=== PATIENT | female | born 1975 | race Caucasian/White ===

== ENCOUNTER 2017-04-06 16:44 | Inpatient (IN) | payer MEDICARE, MEDICAID ==
[~2017-04-06] VITALS: Ht 170.2 cm; Wt 88.8 kg
[~2017-04-06 16:44] MED LIST: DIPHENHYDRAMINE 25 MG CAPSULE PO PRN; HYDROmorphone 1 MG/ML, 1ML ONE; KETOROLAC 30 MG/1 ML ONE
[2017-04-06] MEDS ORDERED: DIAZEPAM 5 MG TABLET ONE (18:34)
[2017-04-06] MEDS ORDERED: OXYcodone/APAP 10/325MG TABLET ONE (18:35)
[2017-04-06] MEDS ORDERED: DIPHENHYDRAMINE 25 MG CAPSULE ONE (19:19)
[2017-04-06] MEDS ORDERED: HYDROmorphone 1 MG/ML, 1ML ONE (21:13)
[2017-04-07] MEDS ORDERED: HYDROmorphone 1 MG/ML, 1ML ONE ×5 (01:22→17:27)
[2017-04-07] MEDS ORDERED: DIPHENHYDRAMINE 25 MG CAPSULE ONE ×2 (01:48→11:03)
[2017-04-07] MEDS ORDERED: ENOXAPARIN 40 MG/0.4 ML SQ ONE (15:30)
[2017-04-07] MEDS ORDERED: ENOXAPARIN 40 MG/0.4 ML ONE (17:25)
[2017-04-07] MEDS ORDERED: DIPHENHYDRAMINE 50 MG/ML, 1ML ONE (17:26)
[2017-04-07] MEDS ORDERED: DIPHENHYDRAMINE 50 MG/ML, 1ML IVPush ONE (17:30)
[2017-04-07 19:00] VITALS: BP 121/79
[2017-04-07] MEDS ORDERED: DIPHENHYDRAMINE 25 MG CAPSULE PO PRN (19:30)
[2017-04-07] MEDS: TOPIRAMATE 100 MG TABLET PO SCH (21:30)
[2017-04-07] MEDS: SODIUM CHLORIDE 0.9% 1,000 ML IV SCH (21:30)
[2017-04-07] MEDS: DULOXETINE 30 MG CAPSULE.DR PO SCH (21:30)
[2017-04-07] MEDS: HYDROmorphone 1 MG/ML, 1ML IV PRN (22:10)
[2017-04-07] MEDS: TEMAZEPAM 30 MG CAPSULE PO PRN (23:16)
[2017-04-08 01:57] VITALS: BP 100/62
[2017-04-08] MEDS: HYDROmorphone 1 MG/ML, 1ML IV PRN ×5 (02:31→21:12)
[2017-04-08] MEDS: PROCHLORPERAZINE 5 MG/ML, 2ML IVPush PRN ×3 (02:42→23:10)
[2017-04-08] MEDS ORDERED: TOPI200T25 PO (03:33)
[2017-04-08] MEDS ORDERED: LACO100T PO (03:36)
[2017-04-08] MEDS ORDERED: LEVO88TA4 PO (03:36)
[2017-04-08] MEDS ORDERED: SIMV20TA3 PO (03:36)
[2017-04-08] MEDS ORDERED: DULO60CA7 PO (03:36)
[2017-04-08] MEDS ORDERED: DIAZ5TAB PO (03:37)
[2017-04-08] MEDS ORDERED: TEMA30CA6 PO (03:37)
[2017-04-08] MEDS: LEVOTHYROXINE 88 MCG TABLET PO SCH (04:56)
[2017-04-08 07:10] VITALS: BP 90/54
[2017-04-08] MEDS ORDERED: DIAZEPAM 5 MG TABLET PO PRN (08:00)
[2017-04-08] MEDS: hydrOXyzine 50MG TABLET PO PRN ×2 (10:03→18:45)
[2017-04-08] MEDS: LACOSAMIDE 50 MG TABLET PO SCH ×2 (10:03→20:50)
[2017-04-08] MEDS: TOPIRAMATE 100 MG TABLET PO SCH ×2 (10:03→20:51)
[2017-04-08] MEDS: DULOXETINE 30 MG CAPSULE.DR PO SCH ×2 (10:03→20:50)
[2017-04-08] MEDS: SODIUM CHLORIDE 0.9% 1,000 ML IV SCH (10:04)
[2017-04-08 12:35] LABS: BLOOD UREA NITROGEN 7 mg/dL (7-18)
[2017-04-08 14:42] VITALS: BP 90/55
[2017-04-08] MEDS: ENOXAPARIN 40 MG/0.4 ML SQ SCH (18:18)
[2017-04-08] MEDS: HYDROcodone/APAP 10/325 MG TABLET PO PRN ×2 (18:43→19:09)
[2017-04-08 20:11] VITALS: BP 97/64
[2017-04-08] MEDS: SIMVASTATIN 20 MG TABLET PO SCH (20:51)
[2017-04-09 02:59] VITALS: BP 93/63
[2017-04-09] MEDS: HYDROmorphone 1 MG/ML, 1ML IV PRN ×3 (03:13→15:27)
[2017-04-09] MEDS: HYDROcodone/APAP 10/325 MG TABLET PO PRN ×4 (05:20→23:51)
[2017-04-09] MEDS: LEVOTHYROXINE 88 MCG TABLET PO SCH (05:20)
[2017-04-09 08:02] VITALS: BP 95/61
[2017-04-09 09:02] LABS: BLOOD UREA NITROGEN 7 mg/dL (7-18)
[2017-04-09] MEDS: TOPIRAMATE 100 MG TABLET PO SCH ×2 (09:42→20:09)
[2017-04-09] MEDS: DULOXETINE 30 MG CAPSULE.DR PO SCH ×2 (09:42→20:10)
[2017-04-09] MEDS: LACOSAMIDE 50 MG TABLET PO SCH ×2 (09:42→20:09)
[2017-04-09 09:44] LABS: ASPARTATE AMINO TRANSFERASE 9 U/L (15-37); BLOOD UREA NITROGEN 16 mg/dL (7-18)
[2017-04-09] MEDS: PROCHLORPERAZINE 5 MG/ML, 2ML IVPush PRN (10:16)
[2017-04-09] MEDS: SODIUM CHLORIDE 0.9% 1,000 ML IV SCH (13:30)
[2017-04-09 14:47] VITALS: BP 100/63
[2017-04-09] MEDS: ENOXAPARIN 40 MG/0.4 ML SQ SCH (17:44)
[2017-04-09 20:02] VITALS: BP 114/73
[2017-04-09] MEDS: SIMVASTATIN 20 MG TABLET PO SCH (20:10)
[2017-04-09] MEDS: HYDROmorphone 2MG TABLET PO PRN (20:11)
[2017-04-09] MEDS: hydrOXyzine 50MG TABLET PO PRN (22:12)
[2017-04-09] MEDS: TEMAZEPAM 30 MG CAPSULE PO PRN (23:51)
[2017-04-10 02:35] VITALS: BP 99/66
[2017-04-10] MEDS: HYDROmorphone 2MG TABLET PO PRN ×3 (03:00→17:15)
[2017-04-10 05:42] LABS: BLOOD UREA NITROGEN 7 mg/dL (7-18)
[2017-04-10] MEDS: HYDROcodone/APAP 10/325 MG TABLET PO PRN ×2 (06:06→13:09)
[2017-04-10] MEDS: hydrOXyzine 50MG TABLET PO PRN ×2 (06:06→13:10)
[2017-04-10] MEDS: LEVOTHYROXINE 88 MCG TABLET PO SCH (06:06)
[2017-04-10 08:15] VITALS: BP 101/68
[2017-04-10] MEDS: LACOSAMIDE 50 MG TABLET PO SCH (10:08)
[2017-04-10] MEDS: TOPIRAMATE 100 MG TABLET PO SCH (10:08)
[2017-04-10] MEDS: DULOXETINE 30 MG CAPSULE.DR PO SCH (10:08)
[2017-04-10] MEDS: SODIUM CHLORIDE 0.9% 1,000 ML IV SCH (14:00)
[2017-04-10 14:19] VITALS: BP 95/64
[2017-04-10] MEDS ORDERED: HYDR-882 PO (15:58)
[2017-04-10] MEDS: ENOXAPARIN 40 MG/0.4 ML SQ SCH (17:15)
== END 2017-04-10 18:40 | disposition home or self-care (01) | DRG 559 ==
LOC: EDIP 16:44 → UNDODISIN 04-07 07:00 → 4NOR 04-07 19:40
PROVIDERS: ADMIT Neurological Surgery; ATTEND Neurological Surgery
DX: T84.84XA Pain due to internal orthopedic prosthetic devices, implants and grafts, initial encounter (principal); E43 Unspecified severe protein-calorie malnutrition; T84.52XA Infection and inflammatory reaction due to internal left hip prosthesis, initial encounter; G89.29 Other chronic pain; E03.9 Hypothyroidism, unspecified; E78.5 Hyperlipidemia, unspecified; E87.6 Hypokalemia; D64.9 Anemia, unspecified; Y83.8 Other surgical procedures as the cause of abnormal reaction of the patient, or of later complication, without mention of misadventure at the time of the procedure; G40.909 Epilepsy, unspecified, not intractable, without status epilepticus; Z96.643 Presence of artificial hip joint, bilateral; Z98.1 Arthrodesis status; Z90.49 Acquired absence of other specified parts of digestive tract; Z88.6 Allergy status to analgesic agent; Z88.1 Allergy status to other antibiotic agents; Z88.8 Allergy status to other drugs, medicaments and biological substances; Z68.30 Body mass index [BMI] 30.0-30.9, adult; Y92.89 Other specified places as the place of occurrence of the external cause; G89.28 Other chronic postprocedural pain
CPT/HCPCS: 36415; 80048; 80053; 82040; 85025; J1170; J1650; J0780; J1200; J7030; Q0163

== ENCOUNTER 2018-09-27 23:22 | Inpatient (IN) | payer MEDICARE, MEDICAID ==
[~2018-09-27] VITALS: Ht 167.6 cm; Wt 89.5 kg
[~2018-09-27 23:22] MED LIST changes: +DIAZ5TAB PO; -DIPHENHYDRAMINE 25 MG CAPSULE PO PRN; +DULO60CA7 PO; +HYDR-3653 PO; -HYDROmorphone 1 MG/ML, 1ML ONE; -KETOROLAC 30 MG/1 ML ONE; +LACO100T PO; +LEVO88TA4 PO; +SIMV20TA3 PO; +TEMA30CA6 PO; +TOPI200T25 PO
[2018-09-28] MEDS ORDERED: HYDROmorphone 1 MG/ML, 1ML IV PRN ×2 (00:30→20:00)
[2018-09-28] MEDS ORDERED: SODIUM CHLORIDE FLUSH 10ML SYR IVF ONE (00:30)
[2018-09-28] MEDS ORDERED: HYDROmorphone 2 MG/ML, 1ML ONE ×8 (00:34→17:47)
[2018-09-28 00:38] LABS: BASOPHILS # (AUTO) 0.06 x10^3/uL (0-0.1); BASOPHILS % (AUTO) 1 % (0-1); EOSINOPHILS # (AUTO) 0.11 x10^3/uL (0-0.4); EOSINOPHILS % (AUTO) 2 % (1-7); LYMPHOCYTES # (AUTO) 1.89 x10^3/uL (1-3.4); LYMPHOCYTES % (AUTO) 26 % (22-44); MD NO; MEAN CORPUSCULAR HEMOGLOBIN 33.5 pg (27.0-34.8); MEAN CORPUSCULAR HGB CONC 34.1 g/dL (32.4-35.8); MEAN PLATELET VOLUME 7.4 fL (7.4-10.4); MONOCYTES # (AUTO) 0.39 x10^3/uL (0.2-0.8); MONOCYTES % (AUTO) 5 % (2-9); NEUTROPHILS # (AUTO) 4.93 x10^3/uL (1.8-6.8); NEUTROPHILS % (AUTO) 67 % (42-75); PLATELET COUNT 370 x10^3/uL (130-400); RED BLOOD COUNT 4.55 x10^6/uL (3.82-5.3); RED CELL DISTRIBUTION WIDTH 14.4 % (9.6-15.2)
[2018-09-28 00:41] LABS: ANION GAP 13 mmol/L (5-15); CALCIUM 9.2 mg/dL (8.5-10.1); CHLORIDE 116 mmol/L (98-107); CREATININE 0.63 mg/dL (0.55-1.02)
[2018-09-28] MEDS ORDERED: hydrALAzine 20 MG/ML, 1ML IVPush PRN (01:00)
[2018-09-28] MEDS ORDERED: ONDANSETRON 2MG/ML, 2ML IVPush PRN (01:00)
[2018-09-28 02:00] VITALS: BP 136/87
[2018-09-28] MEDS ORDERED: HYDROmorphone 1 MG/ML, 1ML IV ONE (02:30)
[2018-09-28] MEDS ORDERED: HYDR1LIQ6 SQ (02:55)
[2018-09-28] MEDS ORDERED: TOPI100T39 PO (02:55)
[2018-09-28] MEDS ORDERED: LACO100T PO (02:55)
[2018-09-28] MEDS ORDERED: SIMV5TAB5 PO (02:55)
[2018-09-28] MEDS ORDERED: TEMA30CA PO (02:55)
[2018-09-28] MEDS: HYDROmorphone 1 MG/ML, 1ML IV PRN ×5 (04:51→14:20)
[2018-09-28] MEDS: MORPHINE SULFATE 4 MG/ML, 1ML IVPush PRN ×4 (07:40→23:06)
[2018-09-28 07:46] VITALS: BP 138/76
[2018-09-28] MEDS: D5%-0.45% NACL 1,000 ML IV SCH ×2 (10:51→20:50)
[2018-09-28 11:59] VITALS: BP 153/88
[2018-09-28] MEDS: LACOSAMIDE 100 MG PO SCH ×2 (14:07→21:00)
[2018-09-28] MEDS: TOPIRAMATE 100 MG TABLET PO SCH ×2 (14:07→21:05)
[2018-09-28 14:24] LABS: HCG UR SG 1.025 (1.003-1.030)
[2018-09-28] MEDS ORDERED: FENTANYL PF 100 MCG/2ML ONE (15:44)
[2018-09-28] MEDS ORDERED: DIPHENHYDRAMINE 50 MG/ML, 1ML IVPush PRN (16:00)
[2018-09-28] MEDS ORDERED: FENTANYL PF 100 MCG/2ML IV PRN (16:00)
[2018-09-28] MEDS ORDERED: LORazepam 2 MG/ML, 1ML IVPush PRN (16:00)
[2018-09-28] MEDS ORDERED: LABETALOL 5MG/ML, 20ML IV PRN (16:00)
[2018-09-28] MEDS ORDERED: OXYcodone 5 MG/5 ML ORAL.SOL UDC PO PRN (16:00)
[2018-09-28] MEDS ORDERED: MEPERIDINE/PF 25MG/0.5ML IVPush PRN (16:00)
[2018-09-28] MEDS ORDERED: hydrALAzine 20 MG/ML, 1ML IV PRN (16:00)
[2018-09-28] MEDS ORDERED: ONDANSETRON 2MG/ML, 2ML ONE (16:17)
[2018-09-28] MEDS ORDERED: DEXAMETHASONE 4 MG/ML, 1ML ONE (16:17)
[2018-09-28] MEDS ORDERED: KETOROLAC 30 MG/1 ML ONE (16:17)
[2018-09-28] MEDS ORDERED: NEOSTIGMINE 1 MG/ML, 10ML ONE (16:17)
[2018-09-28] MEDS ORDERED: SUCCINYLCHOLINE 20 MG/ML, 10ML ONE (16:17)
[2018-09-28] MEDS ORDERED: ROCURONIUM 10 MG/ML,10ML ONE (16:17)
[2018-09-28] MEDS ORDERED: PROPOFOL 10 MG/ML, 20ML ONE (16:17)
[2018-09-28] MEDS ORDERED: GLYCOPYRROLATE 0.2MG/1ML, 5ML ONE (16:17)
[2018-09-28] MEDS ORDERED: PROMETHAZINE 25 MG/ML, 1ML ONE (17:28)
[2018-09-28] MEDS ORDERED: METHADONE 5 MG TABLET PO ONE (17:30)
[2018-09-28] MEDS: HYDROMORPHONE 2 MG/ML IV PRN ×3 (17:53→18:55)
[2018-09-28] MEDS ORDERED: GLYCOPYRROLATE 0.4 MG/2 ML, 2ML ONE (18:16)
[2018-09-28] MEDS ORDERED: GLYCOPYRROLATE 0.2MG/1ML, 5ML IVPush ONE (18:30)
[2018-09-28 18:44] LABS: CALCIUM 8.7 mg/dL (8.5-10.1)
[2018-09-28 19:36] VITALS: BP 143/92
[2018-09-28] MEDS ORDERED: HYDROcodone/APAP 7.5-325MG/15ML UDC ONE (19:45)
[2018-09-28] MEDS ORDERED: ONDANSETRON 2MG/ML, 2ML IV PRN (20:00)
[2018-09-28] MEDS ORDERED: HYDROcodone/APAP 7.5-325MG/15ML UDC PO PRN (20:00)
[2018-09-28] MEDS ORDERED: DIPHENHYDRAMINE 25 MG CAPSULE PO PRN (20:00)
[2018-09-28] MEDS ORDERED: CEFAZOLIN PMX 1GM/50ML 50 ML IVPB SCH (20:00)
[2018-09-28] MEDS: SODIUM CHLORIDE FLUSH 10ML SYR IVF SCH (21:00)
[2018-09-28] MEDS ORDERED: LACOSAMIDE 100 MG HOMEMEDPO SCH (21:00)
[2018-09-28] MEDS ORDERED: TOPIRAMATE 100 MG TABLET PO SCH (21:00)
[2018-09-28] MEDS: KETOROLAC 30 MG/1 ML IM SCH (21:05)
[2018-09-28] MEDS: SIMVASTATIN 5 MG TABLET PO SCH (21:05)
[2018-09-28] MEDS: DOCUSATE 100 MG CAPSULE PO SCH (21:06)
[2018-09-28] MEDS: DIAZEPAM 5 MG TABLET PO PRN (21:06)
[2018-09-28] MEDS ORDERED: TEMAZEPAM 15 MG CAPSULE ONE (23:00)
[2018-09-28] MEDS: TEMAZEPAM 30 MG CAPSULE PO SCH (23:05)
[2018-09-28] MEDS: VANCOMYCIN 1,000 MG in SODIUM CHLORIDE 0.9% 100 ML IV SCH (23:06)
[2018-09-29] MEDS: OXYcodone/APAP 5/325MG TABLET PO PRN ×6 (00:08→21:33)
[2018-09-29 00:21] VITALS: BP 112/74
[2018-09-29] MEDS: MORPHINE SULFATE 4 MG/ML, 1ML IVPush PRN ×5 (03:14→20:27)
[2018-09-29] MEDS: KETOROLAC 30 MG/1 ML IM SCH ×2 (04:16→11:08)
[2018-09-29] MEDS: LEVOTHYROXINE 88 MCG TABLET PO SCH (04:16)
[2018-09-29 04:40] VITALS: BP 106/69
[2018-09-29] MEDS: DIAZEPAM 5 MG TABLET PO PRN ×2 (05:06→21:35)
[2018-09-29] MEDS: ENOXAPARIN 40 MG/0.4 ML SQ SCH (05:06)
[2018-09-29 06:30] LABS: BASOPHILS # (AUTO) 0.03 x10^3/uL (0-0.1); BASOPHILS % (AUTO) 0 % (0-1); EOSINOPHILS # (AUTO) 0.07 x10^3/uL (0-0.4); EOSINOPHILS % (AUTO) 1 % (1-7); LYMPHOCYTES # (AUTO) 1.82 x10^3/uL (1-3.4); LYMPHOCYTES % (AUTO) 23 % (22-44); MD NO; MEAN CORPUSCULAR HGB CONC 33.9 g/dL (32.4-35.8); MEAN CORPUSCULAR VOLUME 100.2 fL (80-100); MEAN PLATELET VOLUME 7.8 fL (7.4-10.4); MONOCYTES # (AUTO) 0.68 x10^3/uL (0.2-0.8); MONOCYTES % (AUTO) 9 % (2-9); NEUTROPHILS # (AUTO) 5.19 x10^3/uL (1.8-6.8); NEUTROPHILS % (AUTO) 67 % (42-75); PLATELET COUNT 238 x10^3/uL (130-400); RED BLOOD COUNT 3.48 x10^6/uL (3.82-5.3); RED CELL DISTRIBUTION WIDTH 14.7 % (9.6-15.2)
[2018-09-29 06:37] LABS: ANION GAP 6 mmol/L (5-15); CHLORIDE 111 mmol/L (98-107)
[2018-09-29 06:38] LABS: CALCIUM 8.6 mg/dL (8.5-10.1); CREATININE 0.69 mg/dL (0.55-1.02)
[2018-09-29] MEDS: D5%-0.45% NACL 1,000 ML IV SCH (06:48)
[2018-09-29 07:14] VITALS: BP 117/76
[2018-09-29 07:15] VITALS: BP 105/66
[2018-09-29] MEDS: SODIUM CHLORIDE FLUSH 10ML SYR IVF SCH ×2 (09:00→20:34)
[2018-09-29] MEDS: LACOSAMIDE 100 MG PO SCH ×2 (09:00→20:34)
[2018-09-29] MEDS: TOPIRAMATE 100 MG TABLET PO SCH ×2 (09:13→20:33)
[2018-09-29] MEDS: DOCUSATE 100 MG CAPSULE PO SCH ×2 (09:13→20:33)
[2018-09-29] MEDS: VANCOMYCIN 1,000 MG in SODIUM CHLORIDE 0.9% 100 ML IV SCH (09:15)
[2018-09-29 09:46] LABS: THYROID STIMULATING HORMONE 1.57 mIU/L (0.358-3.740)
[2018-09-29] MEDS ORDERED: LACOSAMIDE 50 MG TABLET PO ONE (10:30)
[2018-09-29 15:09] VITALS: BP 96/60
[2018-09-29 20:07] VITALS: BP 125/77
[2018-09-29] MEDS: SIMVASTATIN 5 MG TABLET PO SCH (20:33)
[2018-09-29] MEDS: TEMAZEPAM 30 MG CAPSULE PO SCH (21:33)
[2018-09-30] MEDS: MORPHINE SULFATE 4 MG/ML, 1ML IVPush PRN ×7 (00:30→23:10)
[2018-09-30] MEDS: OXYcodone/APAP 5/325MG TABLET PO PRN ×5 (01:34→20:37)
[2018-09-30 02:35] VITALS: BP 111/74
[2018-09-30] MEDS: LEVOTHYROXINE 88 MCG TABLET PO SCH (06:11)
[2018-09-30] MEDS: ENOXAPARIN 40 MG/0.4 ML SQ SCH (06:13)
[2018-09-30] MEDS: FOLIC ACID 1 MG TABLET PO SCH (08:55)
[2018-09-30] MEDS: LACOSAMIDE 100 MG PO SCH ×2 (08:56→20:39)
[2018-09-30] MEDS: THIAMINE 100MG TABLET PO SCH (08:56)
[2018-09-30] MEDS: TOPIRAMATE 100 MG TABLET PO SCH ×2 (08:56→20:37)
[2018-09-30] MEDS: DOCUSATE 100 MG CAPSULE PO SCH ×2 (08:56→20:36)
[2018-09-30] MEDS: CYANOCOBALAMIN 1,000 MCG TABLET PO SCH (08:56)
[2018-09-30] MEDS: DIAZEPAM 5 MG TABLET PO PRN ×2 (08:56→16:00)
[2018-09-30] MEDS: SODIUM CHLORIDE FLUSH 10ML SYR IVF SCH ×2 (08:56→20:38)
[2018-09-30 10:02] VITALS: BP 107/69
[2018-09-30 13:32] VITALS: BP 118/81
[2018-09-30 18:54] VITALS: BP 118/78
[2018-09-30] MEDS ORDERED: HYDROmorphone 2 MG/ML, 1ML ONE (20:31)
[2018-09-30] MEDS: SIMVASTATIN 5 MG TABLET PO SCH (20:37)
[2018-09-30] MEDS: TEMAZEPAM 30 MG CAPSULE PO SCH (22:34)
[2018-10-01] MEDS: OXYcodone/APAP 5/325MG TABLET PO PRN ×5 (00:49→17:11)
[2018-10-01 03:09] VITALS: BP 108/67
[2018-10-01] MEDS: MORPHINE SULFATE 4 MG/ML, 1ML IVPush PRN ×2 (04:20→08:42)
[2018-10-01] MEDS: ENOXAPARIN 40 MG/0.4 ML SQ SCH (06:05)
[2018-10-01] MEDS: LEVOTHYROXINE 88 MCG TABLET PO SCH (06:06)
[2018-10-01] MEDS: TOPIRAMATE 100 MG TABLET PO SCH (08:43)
[2018-10-01] MEDS: DOCUSATE 100 MG CAPSULE PO SCH (08:43)
[2018-10-01] MEDS: FOLIC ACID 1 MG TABLET PO SCH (08:43)
[2018-10-01] MEDS: CYANOCOBALAMIN 1,000 MCG TABLET PO SCH (08:43)
[2018-10-01] MEDS: SODIUM CHLORIDE FLUSH 10ML SYR IVF SCH (08:43)
[2018-10-01] MEDS: THIAMINE 100MG TABLET PO SCH (08:43)
[2018-10-01] MEDS ORDERED: LACOSAMIDE 100 MG PO SCH (09:00)
[2018-10-01 13:15] VITALS: BP 118/78
[2018-10-01] MEDS ORDERED: FOLI-17 PO (14:21)
[2018-10-01] MEDS ORDERED: THIA100T67 PO (14:21)
[2018-10-01] MEDS ORDERED: CYAN10005 PO (14:21)
[2018-10-01] MEDS ORDERED: ASPI81TA45 PO (14:22)
[2018-10-01 17:26] VITALS: BP 121/79
== END 2018-10-01 19:10 | disposition home or self-care (01) | DRG 493 ==
LOC: ED 09-28 00:52 → EDIP 09-28 00:57 → ED 09-28 01:16 → 4NOR 09-28 02:08
PROVIDERS: ADMIT Internal Medicine; ATTEND Internal Medicine
PROC: 0QSG34Z Reposition Right Tibia with Internal Fixation Device, Percutaneous Approach (ICD-10-PCS; 2018-09-28)
PROC: 0QSJXZZ Reposition Right Fibula, External Approach (ICD-10-PCS; 2018-09-28)
PROC: 0QSG36Z Reposition Right Tibia with Intramedullary Internal Fixation Device, Percutaneous Approach (ICD-10-PCS; principal; 2018-09-28 16:00)
DX: S82.251A Displaced comminuted fracture of shaft of right tibia, initial encounter for closed fracture (principal); M87.9 Osteonecrosis, unspecified; F11.20 Opioid dependence, uncomplicated; M87.89 Other osteonecrosis, multiple sites; F10.129 Alcohol abuse with intoxication, unspecified; F32.9 Major depressive disorder, single episode, unspecified; G40.909 Epilepsy, unspecified, not intractable, without status epilepticus; D75.89 Other specified diseases of blood and blood-forming organs; E03.9 Hypothyroidism, unspecified; E78.5 Hyperlipidemia, unspecified; G89.4 Chronic pain syndrome; M81.0 Age-related osteoporosis without current pathological fracture; S82.451A Displaced comminuted fracture of shaft of right fibula, initial encounter for closed fracture; S82.61XA Displaced fracture of lateral malleolus of right fibula, initial encounter for closed fracture; W18.39XA Other fall on same level, initial encounter; Y90.8 Blood alcohol level of 240 mg/100 ml or more; Z96.643 Presence of artificial hip joint, bilateral; Z98.1 Arthrodesis status; Z90.49 Acquired absence of other specified parts of digestive tract; Z88.6 Allergy status to analgesic agent; Z88.1 Allergy status to other antibiotic agents; Z88.5 Allergy status to narcotic agent; Z88.8 Allergy status to other drugs, medicaments and biological substances; Y93.89 Activity, other specified; Y92.89 Other specified places as the place of occurrence of the external cause; Z86.14 Personal history of Methicillin resistant Staphylococcus aureus infection; Z86.718 Personal history of other venous thrombosis and embolism; S82.891A Other fracture of right lower leg, initial encounter for closed fracture; S82.831A Other fracture of upper and lower end of right fibula, initial encounter for closed fracture
CPT/HCPCS: 36415; 76000; 80048; 80307; 81025; 82310; 82607; 83735; 84443; 85025; 96374; 99285; C1713; G0378; J1100; J1170; J1650; J1885; J2405; J2704; J2710; J3010; J3370; J3490; J0330